=== PATIENT | female | born 1980 | race American Indian/Alaskan Native ===

== ENCOUNTER 2017-06-25 08:15 | Emergency (ER) | payer OTHER ==
[2017-06-25 09:08] VITALS: BP 129/74
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
[2017-06-25] MEDS: MOTRIN PO ONE (10:48)
== END 2017-06-25 11:42 | disposition home or self-care (01) ==
LOC: ED 08:15
DX: S13.4XXA Sprain of ligaments of cervical spine, initial encounter (principal); S39.012A Strain of muscle, fascia and tendon of lower back, initial encounter; Z91.018 Allergy to other foods; Z88.8 Allergy status to other drugs, medicaments and biological substances; V89.2XXA Person injured in unspecified motor-vehicle accident, traffic, initial encounter; Y93.89 Activity, other specified; Y92.89 Other specified places as the place of occurrence of the external cause; Y99.8 Other external cause status
CPT/HCPCS: 99282

== ENCOUNTER 2017-10-22 19:50 | Emergency (ER) | payer BC, OTHER ==
[2017-10-22 21:31] LABS: Alanine Aminotransferase 13 units/L (7-56); Albumin 3.9 g/dL (3.9-5); BUN/Creatinine Ratio 18; Blood Urea Nitrogen 11 mg/dL (7-17); Calcium 8.6 mg/dL (8.4-10.2); Hemolysis Index 0
[2017-10-22 21:35] LABS: Basophils % (Auto) 0.2 % (0.0-1.8); Eosinophils % (Auto) 0.3 % (0.0-4.3); Hematocrit 38.1 % (30.3-42.9); Hemoglobin 12.8 gm/dl (10.1-14.3); Lymphocytes # (Auto) 1.1 K/mm3 (1.2-5.4); Lymphocytes % (Auto) 9.2 % (13.4-35.0); Mean Corpuscular HGB Conc 34 % (30-34); Mean Corpuscular Hemoglobin 27 pg (28-32); Mean Corpuscular Volume 80 fl (79-97); Monocytes # (Auto) 0.6 K/mm3 (0.0-0.8); Monocytes % (Auto) 4.8 % (0.0-7.3); Platelet Count 305 K/mm3 (140-440); Red Cell Distribution Width 15.4 % (13.2-15.2)
[2017-10-23] MEDS ORDERED: PROVENTIL IH ONE (01:08)
[2017-10-23] MEDS ORDERED: TYLENOL PO ONE (01:08)
[2017-10-23] MEDS ORDERED: ZOFRAN ORAL LIQ PO ONE (01:08)
--- NOTE | 2017-10-23 01:09 | Emergency Department Report ---
ED General Adult HPI - General Chief complaint: Nausea/Vomiting/Diarrhea Stated complaint: CONGESTION/VOMITING Time Seen by Provider: 10/23/17 00:49 Source: patient, RN notes reviewed Mode of arrival: Ambulatory Limitations: No Limitations - History of Present Illness Initial comments: This is a 37-year-old female, she is previously unknown to this provider, she does not have a primary care doctor, she has no chronic medical conditions. Patient presents to the ER with a complaint of one-week of cough, congestion. This cough and congestion is accompanied by posttussive emesis. She vomited 4 times, nonbloody, nonbilious, the last episode of which was at 6:00 PM on the preceding evening. The patient indicates her symptoms are intermittent, did not radiate anywhere, did not have exacerbating or relieving factors. She denies headache, neck pain, chest pain, abdominal pain, urinary symptoms, patient further endorses that she is not . -: Gradual Consistency: intermittent Improves with: none Worsens with: none Associated Symptoms: cough, malaise, nausea/vomiting, weakness. denies: confusion, chest pain, diaphoresis, headaches, loss of appetite, rash, seizure, shortness of breath, syncope - Related Data Previous Rx's Medication Instructions Recorded Last Taken Type Cyclobenzaprine [Flexeril] 10 mg PO BID PRN #10 tablet 06/25/17 Unknown Rx Ibuprofen [Motrin 600 MG tab] 600 mg PO Q8H PRN #30 tablet 06/25/17 Unknown Rx Albuterol Sulfate [Proair 90 mcg IH Q4HR PRN #2 aer.[email or web address] 10/23/17 Unknown Rx Respiclick] Benzonatate [Tessalon Perles] 100 mg PO Q8HR PRN #30 capsule 10/23/17 Unknown Rx Fluticasone [Flonase] 1 spray NS QDAY #1 bottle 10/23/17 Unknown Rx Ibuprofen [Motrin] 600 mg PO Q8H PRN #30 tablet 10/23/17 Unknown Rx Ondansetron [Zofran Odt] 4 mg PO Q8HR PRN #20 tab.rapdis 10/23/17 Unknown Rx Allergies Allergy/AdvReac Type Severity Reaction Status Date / Time nitrofurantoin Allergy Rash Verified 06/25/17 09:03 [From Macrobid] orange juice Allergy Swelling Verified 06/25/17 09:03 ED Review of Systems ROS: Stated complaint: CONGESTION/VOMITING Other details as noted in HPI ED Past Medical Hx - Past Medical History Previous Medical History?: No - Surgical History Past Surgical History?: Yes Additional Surgical History: C section - Social History Smoking Status: Never Smoker Substance Use Type: None - Medications Home Medications: Home Medications Medication Instructions Recorded Confirmed Last Taken Type Cyclobenzaprine [Flexeril] 10 mg PO BID PRN #10 tablet 06/25/17 Unknown Rx Ibuprofen [Motrin 600 MG tab] 600 mg PO Q8H PRN #30 tablet 06/25/17 Unknown Rx Albuterol Sulfate [Proair 90 mcg IH Q4HR PRN #2 aer.[email or web address] 10/23/17 Unknown Rx Respiclick] Benzonatate [Tessalon Perles] 100 mg PO Q8HR PRN #30 capsule 10/23/17 Unknown Rx Fluticasone [Flonase] 1 spray NS QDAY #1 bottle 10/23/17 Unknown Rx Ibuprofen [Motrin] 600 mg PO Q8H PRN #30 tablet 10/23/17 Unknown Rx Ondansetron [Zofran Odt] 4 mg PO Q8HR PRN #20 tab.rapdis 10/23/17 Unknown Rx ED Physical Exam - General Limitations: No Limitations General appearance: alert, in no apparent distress - Head Head exam: Present: atraumatic, normocephalic - Eye Eye exam: Present: normal appearance, EOMI. Absent: nystagmus - ENT ENT exam: Present: normal exam, normal orophraynx, mucous membranes moist, normal external ear exam - Neck Neck exam: Present: normal inspection, full ROM - Respiratory Respiratory exam: Present: normal lung sounds bilaterally. Absent: respiratory distress, wheezes, rhonchi, stridor, decreased breath sounds - Cardiovascular Cardiovascular Exam: Present: regular rate, normal rhythm, normal heart sounds. Absent: bradycardia, tachycardia, irregular rhythm, systolic murmur, diastolic murmur, rubs, gallop - GI/Abdominal GI/Abdominal exam: Present: soft, normal bowel sounds. Absent: distended, tenderness, guarding, rebound, rigid, pulsatile mass - Extremities Exam Extremities exam: Present: normal inspection, full ROM, normal capillary refill. Absent: tenderness, pedal edema, joint swelling, calf tenderness - Back Exam Back exam: Present: normal inspection, full ROM. Absent: tenderness, CVA tenderness (R), paraspinal tenderness, vertebral tenderness - Neurological Exam Neurological exam: Present: alert, oriented X3, CN II-XII intact, normal gait, other (Extraocular movements intact. Tongue midline. No facial droop. Facial sensation intact to light touch in the V1, V2, V3 distribution bilaterally. 5 and 5 strength in 4 extremities.. Sensation is intact to light touch in 4 extremities.). Absent: motor sensory deficit - Psychiatric Psychiatric exam: Present: normal affect, normal mood - Skin Skin exam: Present: warm, dry, intact, normal color. Absent: rash ED Course Vital Signs 10/22/17 10/23/17 10/23/17 20:43 00:40 00:46 Temperature 98.3 F Pulse Rate 99 H Respiratory 17 Rate Blood Pressure 142/95 O2 Sat by Pulse 99 97 98 Oximetry 10/23/17 10/23/17 10/23/17 00:54 01:00 01:16 Temperature Pulse Rate Respiratory 16 Rate Blood Pressure 120/79 120/79 O2 Sat by Pulse 99 99 99 Oximetry 10/23/17 10/23/17 10/23/17 01:30 01:48 02:00 Temperature Pulse Rate Respiratory Rate Blood Pressure 137/90 137/90 137/90 O2 Sat by Pulse 99 97 99 Oximetry 10/23/17 02:16 Temperature Pulse Rate Respiratory Rate Blood Pressure 187/104 O2 Sat by Pulse 100 Oximetry ED Medical Decision Making - Lab Data Result diagrams: 10/22/17 20:59 10/22/17 20:59 Vital Signs 10/22/17 10/23/17 10/23/17 20:43 00:40 00:46 Temperature 98.3 F Pulse Rate 99 H Respiratory 17 Rate Blood Pressure 142/95 O2 Sat by Pulse 99 97 98 Oximetry 10/23/17 10/23/17 10/23/17 00:54 01:00 01:16 Temperature Pulse Rate Respiratory 16 Rate Blood Pressure 120/79 120/79 O2 Sat by Pulse 99 99 99 Oximetry 10/23/17 10/23/17 10/23/17 01:30 01:48 02:00 Temperature Pulse Rate Respiratory Rate Blood Pressure 137/90 137/90 137/90 O2 Sat by Pulse 99 97 99 Oximetry 02/20/18 02:16 Temperature Pulse Rate Respiratory Rate Blood Pressure 187/104 O2 Sat by Pulse 100 Oximetry Lab Results 10/22/17 10/22/17 10/23/17 Range/Units 20:59 20:59 00:55 WBC 12.1 H (4.5-11.0) K/mm3 RBC 4.80 (3.65-5.03) M/mm3 Hgb 12.8 (10.1-14.3) gm/dl Hct 38.1 (30.3-42.9) % MCV 80 (79-97) fl MCH 27 L (28-32) pg MCHC 34 (30-34) % RDW 15.4 H (13.2-15.2) % Plt Count 305 (140-440) K/mm3 Lymph % (Auto) 9.2 L (13.4-35.0) % [place] % (Auto) 4.8 (0.0-7.3) % Eos % (Auto) 0.3 (0.0-4.3) % Baso % (Auto) 0.2 (0.0-1.8) % Lymph # 1.1 L (1.2-5.4) K/mm3 Taney # 0.6 (0.0-0.8) K/mm3 Eos # 0.0 (0.0-0.4) K/mm3 Baso # 0.0 (0.0-0.1) K/mm3 Seg Neutrophils % 85.5 H (40.0-70.0) % Seg Neutrophils # 10.3 H (1.8-7.7) K/mm3 Sodium 139 (137-145) mmol/L Potassium 3.7 (3.6-5.0) mmol/L Chloride 101.8 (98-107) mmol/L Carbon Dioxide 25 (22-30) mmol/L Anion Gap 16 mmol/L BUN 11 (7-17) mg/dL Creatinine 0.6 L (0.7-1.2) mg/dL Estimated GFR > 60 ml/min BUN/Creatinine Ratio 18 % Glucose 101 H (65-100) mg/dL Calcium 8.6 (8.4-10.2) mg/dL Total Bilirubin 0.40 (0.1-1.2) mg/dL AST 13 (5-40) units/L ALT 13 (7-56) units/L Alkaline Phosphatase 82 (35-129) units/L Total Protein 7.2 (6.3-8.2) g/dL Albumin 3.9 (3.9-5) g/dL Albumin/Globulin Ratio 1.2 % Urine Color Yellow (Yellow) Urine Turbidity Slightly hazy (Clear) Urine pH 5.0 (5.0-7.0) Ur Specific [place] 1.018 (1.003-1.030) Urine Protein <15 mg/dl (Negative) mg/dL Urine Glucose (UA) Neg (Negative) mg/dL Urine Ketones Neg (Negative) mg/dL Urine Blood Neg (Negative) Urine Nitrite Neg (Negative) Urine Bilirubin Neg (Negative) Urine Urobilinogen < 2.0 (<2.0) mg/dL Ur Leukocyte Esterase Mod (Negative) Urine WBC (Auto) 9.0 H (0.0-6.0) /HPF Urine RBC (Auto) 6.0 (0.0-6.0) /HPF U Epithel Cells (Auto) 44.0 H (0-13.0) /HPF Urine Bacteria (Auto) 1+ (Negative) /HPF Urine Mucus 3+ /HPF Urine HCG, Qual (Negative) 10/23/17 Range/Units 01:16 WBC (4.5-11.0) K/mm3 RBC (3.65-5.03) M/mm3 Hgb (10.1-14.3) gm/dl Hct (30.3-42.9) % MCV (79-97) fl MCH (28-32) pg MCHC (30-34) % RDW (13.2-15.2) % Plt Count (140-440) K/mm3 Lymph % (Auto) (13.4-35.0) % Taney % (Auto) (0.0-7.3) % Eos % (Auto) (0.0-4.3) % Baso % (Auto) (0.0-1.8) % Lymph # (1.2-5.4) K/mm3 Taney # (0.0-0.8) K/mm3 Eos # (0.0-0.4) K/mm3 Baso # (0.0-0.1) K/mm3 Seg Neutrophils % (40.0-70.0) % Seg Neutrophils # (1.8-7.7) K/mm3 Sodium (137-145) mmol/L Potassium (3.6-5.0) mmol/L Chloride (98-107) mmol/L Carbon Dioxide (22-30) mmol/L Anion Gap mmol/L BUN (7-17) mg/dL Creatinine (0.7-1.2) mg/dL Estimated GFR ml/min BUN/Creatinine Ratio % Glucose (65-100) mg/dL Calcium (8.4-10.2) mg/dL Total Bilirubin (0.1-1.2) mg/dL AST (5-40) units/L ALT (7-56) units/L Alkaline Phosphatase (35-129) units/L Total Protein (6.3-8.2) g/dL Albumin (3.9-5) g/dL Albumin/Globulin Ratio % Urine Color (Yellow) Urine Turbidity (Clear) Urine pH (5.0-7.0) Ur Specific [place] (1.003-1.030) Urine Protein (Negative) mg/dL Urine Glucose (UA) (Negative) mg/dL Urine Ketones (Negative) mg/dL Urine Blood (Negative) Urine Nitrite (Negative) Urine Bilirubin (Negative) Urine Urobilinogen (<2.0) mg/dL Ur Leukocyte Esterase (Negative) Urine WBC (Auto) (0.0-6.0) /HPF Urine RBC (Auto) (0.0-6.0) /HPF U Epithel Cells (Auto) (0-13.0) /HPF Urine Bacteria (Auto) (Negative) /HPF Urine Mucus /HPF Urine HCG, Qual Negative (Negative) - Radiology Data Radiology results: report reviewed, image reviewed X-ray the chest, interpreted by radiology, no acute disease - Medical Decision Making Differential diagnosis, including but not limited to: Viral syndrome, pneumonia , posttussive emesis, bronchitis Assessment and plan: 37-year-old female with complaint of cough, facial congestion, posttussive emesis, no abdominal pain, no abdominal tenderness. Laboratory studies unremarkable, physical exam unremarkable, when this provider goes into the room to examine the patient she is sleeping comfortably and in no distress. Patient treated appropriately with breathing medication, nausea medication, x-ray of the chest was clear, patient will be treated expectantly. Return precautions are reviewed. I see no indication for antibiotic therapy at this time. Critical care attestation.: If time is entered above; I have spent that time in minutes in the direct care of this critically ill patient, excluding procedure time. ED Disposition Clinical Impression: Bronchitis Disposition: [id number] TO HOME OR SELFCARE Is pt being admited?: No Does the pt Need Aspirin: No Condition: Stable Instructions: Acute Bronchitis (ED), Chronic Bronchitis (ED) Additional Instructions: Take the medications as needed/directed. Follow-up with her primary care doctor within the next 7-10 days. Symptoms likely coming from cold, bronchitis. Symptoms may take up to 4-6 weeks to completely resolve. Avoid exposure to tobacco and smoke. Please note that blood pressure was somewhat elevated in the emergency room. This should be followed up by her primary care doctor within the recommended time frame. It is very important to follow-up for evaluation of high blood pressure with a primary care doctor, as long-term complications of hypertension and elevated blood pressure can cause stroke, heart attack, disability, paralysis. Please return to the ER right away with new pain, worsened pain, migration of pain, intractable nausea or vomiting, confusion, inability to tolerate liquid feeds. Referrals: ADRIENNE MANJARREZ MD [Primary Care Provider] - 3-5 Days JULISSA AHUMADA MD [Staff Physician] - 3-5 Days [facility] [Provider Group] - 3-5 Days
[2017-10-23 01:16] LABS: Bacteria,Urine 1+ /HPF (Negative); Bilirubin,Urine NEG (Negative); Blood,Urine NEG (Negative); Color,Urine Yellow (Yellow); Mucus,Urine 3+ /HPF; Nitrite,Urine NEG (Negative); Protein,Urine <15 mg/dL mg/dL (Negative); Urobilinogen,Urine < 2.0 mg/dL (<2.0)
[2017-10-23 01:30] LABS: HCG Qualitative,Urine Negative (Negative)
--- NOTE | 2017-10-23 01:59 | XRay Report ---
FINAL REPORT EXAM: XR CHEST ROUTINE 2V HISTORY: cough TECHNIQUE: PA and lateral views of the chest were submitted. FINDINGS: The heart size and mediastinum appear normal. The lungs are clear. The bones and soft tissues appear well maintained. IMPRESSION: Within normal limits.
[2017-10-23 03:03] VITALS: BP 171/98
== END 2017-10-23 03:03 | disposition home or self-care (01) ==
LOC: ED 19:50
DX: J40 Bronchitis, not specified as acute or chronic (principal)
CPT/HCPCS: 36415; 71046; 80053; 81001; 81025; 85025; 99284; Q0162